=== PATIENT | female | born 1960 | race Caucasian/White ===

== ENCOUNTER 2021-11-01 17:12 | Emergency (ER) | payer MEDICAID ==
[~2021-11-01] VITALS: Ht 165.1 cm; Wt 63.6 kg
[~2021-11-01 17:12] MED LIST: ASPI-1026 PO; ATEN-72 PO; CLON0.1T PO; FENO145T PO; PARO-38 PO
[2021-11-01] MEDS ORDERED: LIDOCAINE 1% 20 ML VIAL ID ONE (19:00)
[2021-11-01] MEDS ORDERED: HYDROCODONE/ACETAMINOPHEN 5-325 MG TABLET PO ONE (19:00)
[2021-11-01] MEDS ORDERED: BACITRACIN 0.9 GM PACKET OINTMENT TP ONE (19:45)
[2021-11-01 20:08] VITALS: BP 106/48
== END 2021-11-01 20:10 | disposition home or self-care (01) ==
LOC: EMS 17:59
DX: S01.81XA Laceration without foreign body of other part of head, initial encounter (principal); E11.9 Type 2 diabetes mellitus without complications; I10 Essential (primary) hypertension; F17.210 Nicotine dependence, cigarettes, uncomplicated; W19.XXXA Unspecified fall, initial encounter; Y93.89 Activity, other specified; Y92.89 Other specified places as the place of occurrence of the external cause; Y99.8 Other external cause status
CPT/HCPCS: 12013; 99283; J3490; 12002

== ENCOUNTER 2022-05-22 02:20 | Emergency (ER) | payer MEDICARE, OTHER ==
[~2022-05-22] VITALS: Ht 167.6 cm; Wt 59.1 kg
[2022-05-22 02:21] VITALS: BP 117/71
[2022-05-22] MEDS ORDERED: IBUP-1554 PO (03:17)
== END 2022-05-22 03:52 | disposition home or self-care (01) ==
LOC: EMS 02:23
DX: S92.515A Nondisplaced fracture of proximal phalanx of left lesser toe(s), initial encounter for closed fracture (principal); E11.9 Type 2 diabetes mellitus without complications; I10 Essential (primary) hypertension; F17.210 Nicotine dependence, cigarettes, uncomplicated; Z98.890 Other specified postprocedural states; X58.XXXA Exposure to other specified factors, initial encounter; Y93.89 Activity, other specified; Y92.89 Other specified places as the place of occurrence of the external cause; Y99.8 Other external cause status
CPT/HCPCS: 99283

== ENCOUNTER 2022-12-19 22:21 | Emergency (ER) | payer MEDICARE, OTHER ==
[~2022-12-19] VITALS: Ht 165.1 cm; Wt 56.8 kg
[~2022-12-19 22:21] MED LIST changes: +IBUP-1554 PO
[2022-12-20 02:51] VITALS: BP 103/69
== END 2022-12-20 06:33 | disposition left against medical advice (07) ==
LOC: EMS 22:23
DX: R13.10 Dysphagia, unspecified (principal); E11.9 Type 2 diabetes mellitus without complications; I10 Essential (primary) hypertension; F17.210 Nicotine dependence, cigarettes, uncomplicated; Z98.890 Other specified postprocedural states; Z88.8 Allergy status to other drugs, medicaments and biological substances
CPT/HCPCS: 70490; 71250; 99284; Z7502

== ENCOUNTER 2024-05-12 00:15 | Emergency (ER) | payer MEDICARE, OTHER ==
[~2024-05-12] VITALS: Ht 162.6 cm; Wt 63.6 kg
[2024-05-12] MEDS: SODIUM CHLORIDE 0.9% 1,000 ML IV ONE (02:18)
[2024-05-12 02:34] LABS: COVID AG,FIA SOURCE NASAL SWAB
[2024-05-12 02:37] LABS: CREATININE 2.99 mg/dL (0.60-1.30); POTASSIUM 4.3 mmol/L (3.5-5.1)
[2024-05-12 02:57] LABS: INFLUENZA TYPE A NEGATIVE FOR TYPE A (NEGATIVE); INFLUENZA TYPE B NEGATIVE FOR TYPE B (NEGATIVE)
[2024-05-12 02:59] LABS: SARS-COV2 (COVID) ANTIGEN,FIA Negative (Negative)
[2024-05-12 04:11] VITALS: BP 119/63; PULSE 70; RESP 16; TEMP 98.3; O2SAT 98
[2024-05-12 05:07] LABS: APPEARANCE,URINE CLEAR (CLEAR); BILIRUBIN,URINE NEGATIVE (NEGATIVE); COLOR,URINE LIGHT YELLOW (YELLOW); GLUCOSE, URINE (UA) >=1000 mg/dL (NEGATIVE); KETONES,URINE NEGATIVE (NEGATIVE); LEUKOCYTE ESTERASE ,URINE SMALL (NEGATIVE); NITRATE,URINE NEGATIVE (NEGATIVE); OCCULT BLOOD,URINE NEGATIVE (NEGATIVE); PH,URINE 5.5 (5.0-8.0); PROTEIN,URINE TRACE mg/dL (NEGATIVE); UROBILINOGEN,URINE <=1.0 mg/dL (<=1.0)
[2024-05-12 05:44] LABS: BACTERIA,URINE None Seen /HPF (None Seen); RBC,URINE None Seen /HPF (0-2); SQUAMOUS EPITHELIAL CELL,UR Few /LPF (None Seen); WBC,URINE 0-2 /HPF (0-5)
[2024-05-12 05:49] LABS: BASOPHILS % (AUTO) 0.1 % (0.0-2.0); EOSINOPHILS % (AUTO) 4.6 % (1.0-6.0); HEMOGLOBIN 10.5 g/dL (12.0-16.0); LYMPHOCYTES # (AUTO) 0.8 K/uL (1.0-4.8); LYMPHOCYTES % (AUTO) 7.4 % (22.0-44.0); MEAN CORPUSCULAR HEMOGLOBIN 27.3 pg (26.0-34.0); MEAN CORPUSCULAR HGB CONC 31.8 G/dL (31.0-37.0); MEAN CORPUSCULAR VOLUME 86 fL (80-100); MONOCYTES # (AUTO) 0.5 K/uL (0.1-1.0); MONOCYTES % (AUTO) 4.6 % (2.0-9.0); NEUTROPHILS # (AUTO) 8.8 K/uL (1.8-7.7); NEUTROPHILS % (AUTO) 83.3 % (40.0-70.0); PLATELET COUNT (AUTO) 233 K/uL (150-450); RED BLOOD CELL COUNT(AUTO) 3.85 MIL/uL (4.00-5.20); WHITE BLOOD COUNT (AUTO) 10.6 K/uL (4.5-11.0)
== END 2024-05-12 04:25 | disposition home or self-care (01) ==
LOC: EMS 00:15
DX: R19.7 Diarrhea, unspecified (principal); E11.9 Type 2 diabetes mellitus without complications; I10 Essential (primary) hypertension; F17.210 Nicotine dependence, cigarettes, uncomplicated; Z98.890 Other specified postprocedural states; Z20.822 Contact with and (suspected) exposure to COVID-19
CPT/HCPCS: 99283; 96360; 87426; 80048; 81001; 85025; 87804; 36415; J7030

== ENCOUNTER 2024-07-13 00:01 | Emergency (ER) | payer MEDICARE, OTHER ==
[~2024-07-13] VITALS: Ht 165.1 cm; Wt 61.8 kg
[2024-07-13 00:07] VITALS: TEMP 97.9
[2024-07-13 01:25] LABS: BASOPHILS % (AUTO) 0.9 % (0.0-2.0); EOSINOPHILS % (AUTO) 3.5 % (1.0-6.0); HEMATOCRIT 35.9 % (36-46); HEMOGLOBIN 11.6 g/dL (12.0-16.0); LYMPHOCYTES # (AUTO) 2.8 K/uL (1.0-4.8); LYMPHOCYTES % (AUTO) 41.2 % (22.0-44.0); MEAN CORPUSCULAR HEMOGLOBIN 27.4 pg (26.0-34.0); MEAN CORPUSCULAR HGB CONC 32.2 G/dL (31.0-37.0); MEAN CORPUSCULAR VOLUME 85 fL (80-100); MONOCYTES # (AUTO) 0.4 K/uL (0.1-1.0); MONOCYTES % (AUTO) 6.5 % (2.0-9.0); NEUTROPHILS # (AUTO) 3.2 K/uL (1.8-7.7); NEUTROPHILS % (AUTO) 47.9 % (40.0-70.0); PLATELET COUNT (AUTO) 213 K/uL (150-450); RED BLOOD CELL COUNT(AUTO) 4.23 MIL/uL (4.00-5.20); RED CELL DISTRIBUTION WIDTH 15.7 % (11.5-14.5); WHITE BLOOD COUNT (AUTO) 6.7 K/uL (4.5-11.0)
[2024-07-13 01:35] LABS: CALCIUM, TOTAL 8.4 mg/dL (8.8-10.5); CREATININE 2.16 mg/dL (0.60-1.30); POTASSIUM 3.6 mmol/L (3.5-5.1)
[2024-07-13 01:46] LABS: APPEARANCE,URINE TURBID (CLEAR); BILIRUBIN,URINE NEGATIVE (NEGATIVE); COLOR,URINE LIGHT ORANGE (YELLOW); GLUCOSE, URINE (UA) >=1000 mg/dL (NEGATIVE); KETONES,URINE NEGATIVE (NEGATIVE); LEUKOCYTE ESTERASE ,URINE LARGE (NEGATIVE); OCCULT BLOOD,URINE MODERATE (NEGATIVE); PH,URINE 5.5 (5.0-8.0); PROTEIN,URINE 30-70 mg/dL (NEGATIVE); SPECIFIC GRAVITIY, URINE 1.006 (1.003-1.030); UROBILINOGEN,URINE <=1.0 mg/dL (<=1.0)
[2024-07-13 01:47] LABS: NITRATE,URINE NEGATIVE (NEGATIVE)
[2024-07-13 01:50] LABS: BACTERIA,URINE Moderate /HPF (None Seen); SQUAMOUS EPITHELIAL CELL,UR Few /LPF (None Seen); WBC,URINE >100 /HPF (0-5)
[2024-07-13 02:00] VITALS: BP 105/69; PULSE 62; RESP 18; O2SAT 100
[2024-07-13] MEDS: CEPHALEXIN MONOHYDRATE 500 MG CAPSULE PO ONE (02:12)
[2024-07-13] MEDS ORDERED: CEPH-558 PO (02:35)
== END 2024-07-13 02:43 | disposition home or self-care (01) ==
LOC: EMS 00:02
DX: N39.0 Urinary tract infection, site not specified (principal); F17.210 Nicotine dependence, cigarettes, uncomplicated; I12.9 Hypertensive chronic kidney disease with stage 1 through stage 4 chronic kidney disease, or unspecified chronic kidney disease; E11.22 Type 2 diabetes mellitus with diabetic chronic kidney disease; N18.9 Chronic kidney disease, unspecified; Z88.8 Allergy status to other drugs, medicaments and biological substances
CPT/HCPCS: 51798; 80048; 81001; 85025; 87077; 87086; 87186; 99284

== ENCOUNTER 2025-02-26 04:09 | Emergency (ER) | payer MEDICARE, OTHER ==
[~2025-02-26] VITALS: Ht 162.6 cm; Wt 68.2 kg
[~2025-02-26 04:09] MED LIST changes: +CEPH-558 PO
[2025-02-26 04:10] VITALS: BP 97/51; PULSE 75; RESP 16; TEMP 98.1; O2SAT 98
[2025-02-26 06:38] LABS: APPEARANCE,URINE CLEAR (CLEAR); GLUCOSE, URINE (UA) 300-500 mg/dL (NEGATIVE); LEUKOCYTE ESTERASE ,URINE NEGATIVE (NEGATIVE); NITRATE,URINE NEGATIVE (NEGATIVE); OCCULT BLOOD,URINE NEGATIVE (NEGATIVE); SPECIFIC GRAVITIY, URINE 1.010 (1.003-1.030)
[2025-02-26 06:54] LABS: SQUAMOUS EPITHELIAL CELL,UR Moderate /LPF (None Seen)
== END 2025-02-26 06:34 | disposition home or self-care (01) ==
LOC: EMS 04:09
DX: R33.9 Retention of urine, unspecified (principal); E11.9 Type 2 diabetes mellitus without complications; I10 Essential (primary) hypertension; F17.210 Nicotine dependence, cigarettes, uncomplicated; Z88.8 Allergy status to other drugs, medicaments and biological substances; Z79.899 Other long term (current) drug therapy
CPT/HCPCS: 51702; 81001; 99284; Z7502